=== PATIENT | male | born 1980 | race African-American/Black ===

== ENCOUNTER 2018-10-18 11:44 | Emergency (ER) | payer OTHER, SELFPAY ==
[2018-10-18] MEDS ORDERED: Ketorolac Tromethamine 60 MG/2 ML VIAL ONE (12:15)
== END 2018-10-18 12:35 | disposition home or self-care (01) ==
LOC: ERS 11:44
DX: A63.0 Anogenital (venereal) warts (principal); K61.0 Anal abscess; F32.9 Major depressive disorder, single episode, unspecified; F17.210 Nicotine dependence, cigarettes, uncomplicated; F20.9 Schizophrenia, unspecified; L03.116 Cellulitis of left lower limb; L03.115 Cellulitis of right lower limb
CPT/HCPCS: 96372; 99283; J1885

== ENCOUNTER 2020-01-02 06:02 | Emergency (ER) | payer SELFPAY ==
[2020-01-02] MEDS ORDERED: Ketorolac Tromethamine 30 MG/ML VIAL ONE (06:11)
[2020-01-02] MEDS ORDERED: Orphenadrine Citrate 60 MG/2 ML VIAL SLOW IVP SCH (06:15)
== END 2020-01-02 07:10 | disposition home or self-care (01) ==
LOC: ERS 06:02
DX: M62.830 Muscle spasm of back (principal); I10 Essential (primary) hypertension; F32.9 Major depressive disorder, single episode, unspecified; F20.9 Schizophrenia, unspecified; F17.210 Nicotine dependence, cigarettes, uncomplicated; Z79.899 Other long term (current) drug therapy
CPT/HCPCS: 96372; 99283; J1885; J2360

== ENCOUNTER 2022-01-16 21:57 | Inpatient (IN) | payer SELFPAY ==
[2022-01-17] MEDS ORDERED: HYDROcodone/Acetaminophen 10/325 mg Tablet ONE (01:21)
[2022-01-17 02:50] LABS: #Lymphocytes 2.2 thou/uL (1.20-3.40); #Neutrophils 10.4 thou/uL (1.40-6.50); %Basophils 0.1 % (0.0-1.0); %Eosinophils 0.3 % (0.0-10.0); %Lymphocytes 16.1 % (21.0-51.0); %Monocytes 7.2 % (0.0-10.0); %Neutrophils 76.2 % (42.0-75.0); Hemoglobin 15.2 g/dL (14.0-18.0); Mean Corpuscular HGB CONC 32.1 g/dL (32.0-36.0); Mean Corpuscular Hemoglobin 31.8 pg (27.0-31.0); Mean Corpuscular Volume 98.8 fl (78.0-98.0); Mean Platelet Volume 7.1 fL (7.4-10.4); Platelet Count 390 10x3/uL (130-400); RBC Distribution Width 14.2 % (11.5-14.5); White Blood Cell (WBC) Count 13.6 10x3/uL (4.8-10.8)
[2022-01-17] MEDS ORDERED: FENTANYL 50 MCG/ML 1 ML VIAL ONE ×2 (02:51→03:12)
[2022-01-17 02:58] LABS: ALT (SGPT) 18 U/L (8-55); AST (SGOT) 24 U/L (5-34); Albumin 3.8 g/dL (3.5-5.0); Alkaline Phosphatase 119 U/L (40-110); Anion Gap 16 mmol/L (10-20); BUN (Urea Nitrogen) 11 mg/dL (8.9-20.6); Bilirubin, Total 0.5 mg/dL (0.2-1.2); Calc. Creatinine Clearance 0 mL/min (70-130); Calcium 9.1 mg/dL (7.8-10.44); Carbon Dioxide 20 mmol/L (22-29); Chloride 105 mmol/L (98-107); Estimated GFR 79; Globulin 4.1 g/dL (2.4-3.5); Glucose 139 mg/dL (70-105); Potassium 4.3 mmol/L (3.5-5.1); Protein, Total 7.9 g/dL (6.0-8.3); Sodium 137 mmol/L (136-145)
[2022-01-17] MEDS ORDERED: Acetaminophen 325 MG TAB PO PRN (06:00)
[2022-01-17] MEDS ORDERED: Ondansetron PF 4 MG/2 ML Vial IVP PRN ×2 (06:00→06:47)
[2022-01-17] MEDS ORDERED: Ondansetron ODT 4 MG TAB SL PRN (06:00)
[2022-01-17] MEDS ORDERED: Morphine 4 MG/ML VIAL ONE (06:16)
[2022-01-17] MEDS ORDERED: Morphine 4 MG/ML VIAL SLOW IVP PRN (06:34)
[2022-01-17 06:42] VITALS: BMI 44.0
[2022-01-17] MEDS ORDERED: traMADol HCl 50 MG TAB PO PRN ×2 (06:47)
[2022-01-17] MEDS ORDERED: Ondansetron ODT 4 MG TAB PO PRN (06:47)
[2022-01-17] MEDS ORDERED: hydrALAZINE 20 MG/ML VIAL SLOW IVP PRN ×2 (06:47→06:51)
[2022-01-17] MEDS ORDERED: Dextrose 50% Abboject 50 ML SYRINGE SLOW IVP PRN (06:47)
[2022-01-17] MEDS ORDERED: Dextrose 5% in Water 1,000 ML IV PRN (06:47)
[2022-01-17] MEDS ORDERED: Cyclobenzaprine 10 MG TAB PO PRN (06:51)
[2022-01-17] MEDS ORDERED: Sodium Chloride 0.9% 1,000 ML IV SCH (07:00)
[2022-01-17 07:29] LABS: SARS-CoV-2 NAA Rapid Test Not Detected (NotDetected)
[2022-01-17] MEDS: Senokot S 8.6-50 MG TAB PO SCH ×2 (08:06→20:52)
[2022-01-17] MEDS: Polyethylene Glycol 3350 17 GM Packet PO SCH (08:06)
[2022-01-17] MEDS: Famotidine 20 MG TAB PO SCH ×2 (08:06→20:52)
[2022-01-17] MEDS ORDERED: Acetaminophen 325 MG TAB PO SCH (12:00)
[2022-01-17] MEDS ORDERED: Ibuprofen 200 MG TAB PO PRN (12:51)
[2022-01-17] MEDS: Gabapentin 300 MG CAP PO SCH ×2 (14:01→20:52)
[2022-01-17] MEDS: traMADol HCl 50 MG TAB PO PRN ×2 (14:02→20:54)
[2022-01-17] MEDS: Acetaminophen/Codeine 30-300mg Tablet PO SCH (17:17)
[2022-01-18] MEDS: Acetaminophen/Codeine 30-300mg Tablet PO SCH ×5 (00:18→23:53)
[2022-01-18] MEDS: Famotidine 20 MG TAB PO SCH ×2 (07:59→21:18)
[2022-01-18] MEDS: Polyethylene Glycol 3350 17 GM Packet PO SCH (07:59)
[2022-01-18] MEDS: Senokot S 8.6-50 MG TAB PO SCH ×2 (07:59→22:48)
[2022-01-18] MEDS: Gabapentin 300 MG CAP PO SCH ×3 (08:00→21:18)
[2022-01-18] MEDS: Amlodipine 5 MG TAB PO SCH (10:16)
[2022-01-18] MEDS: Enoxaparin Sodium 40 MG/0.4 ML SYRINGE SC SCH ×2 (10:17→21:18)
[2022-01-19] MEDS: Acetaminophen/Codeine 30-300mg Tablet PO SCH ×2 (05:42→12:47)
[2022-01-19] MEDS: Enoxaparin Sodium 40 MG/0.4 ML SYRINGE SC SCH (08:05)
[2022-01-19] MEDS: Gabapentin 300 MG CAP PO SCH ×2 (08:06→16:03)
[2022-01-19] MEDS: Famotidine 20 MG TAB PO SCH (08:06)
[2022-01-19] MEDS: Amlodipine 5 MG TAB PO SCH (08:06)
[2022-01-19 12:45] VITALS: BP 125/81; TEMP 98.6
[2022-01-19] MEDS: Polyethylene Glycol 3350 17 GM Packet PO SCH (12:47)
[2022-01-19] MEDS: Senokot S 8.6-50 MG TAB PO SCH (12:47)
== END 2022-01-19 18:30 | disposition home or self-care (01) | DRG 563 ==
LOC: ERS 21:57 → SJJU 01-17 03:18
PROVIDERS: ADMIT Surgery; ATTEND Surgery
DX: S82.141A Displaced bicondylar fracture of right tibia, initial encounter for closed fracture (principal); Z68.41 Body mass index [BMI] 40.0-44.9, adult; W10.9XXA Fall (on) (from) unspecified stairs and steps, initial encounter; Z20.822 Contact with and (suspected) exposure to COVID-19; F20.9 Schizophrenia, unspecified; Z85.048 Personal history of other malignant neoplasm of rectum, rectosigmoid junction, and anus; E66.9 Obesity, unspecified; I10 Essential (primary) hypertension; F17.210 Nicotine dependence, cigarettes, uncomplicated
CPT/HCPCS: 80053; 85025; J1650; J2270; J3010; J7050; U0002

== ENCOUNTER 2023-02-20 12:31 | Emergency (ER) | payer BC, OTHER, SELFPAY ==
[2023-02-20] MEDS ORDERED: Ketorolac Tromethamine 30 MG (1 mL) VIAL ONE (13:18)
[2023-02-20] MEDS ORDERED: Ondansetron PF 4 MG/2 ML Vial ONE (13:18)
[2023-02-20] MEDS ORDERED: Morphine 4 MG/ML VIAL ONE (13:18)
[2023-02-20 13:27] LABS: #Eosinphils 0.2 thou/uL (0.0-0.7); #Monocytes 1.2 thou/uL (0.11-0.59); #Neutrophils 7.6 thou/uL (1.40-6.50); %Basophils 0.3 % (0.0-1.0); %Eosinophils 1.6 % (0.0-10.0); %Lymphocytes 13.9 % (21.0-51.0); %Monocytes 11.7 % (0.0-10.0); %Neutrophils 72.2 % (42.0-75.0); Hematocrit 42.1 % (42.0-52.0); Hemoglobin 13.8 g/dL (14.0-18.0); Mean Corpuscular HGB CONC 32.8 g/dL (32.0-36.0); Mean Corpuscular Volume 94.6 fl (78.0-98.0); Mean Platelet Volume 9.8 fL (7.4-10.4); Platelet Count 299 10x3/uL (130-400); RBC Distribution Width 15.4 % (11.5-14.5); Red Blood Cell (RBC) Count 4.45 mill/uL (4.70-6.10); White Blood Cell (WBC) Count 10.5 10x3/uL (4.8-10.8)
[2023-02-20 13:47] LABS: Prothrombin Time 13.3 sec (12.0-14.7)
[2023-02-20 13:48] LABS: PTT 26.4 sec (22.9-36.1)
[2023-02-20 13:57] LABS: Acetaminophen Less than 10 mcg/mL (10.0-30.0); Alcohol Less than 10.0 mg/dL (Less than 10); Lipase 31 U/L (8-78); Salicylate Less than 8.0 mg/dL (15.0-30.0)
[2023-02-20 13:58] LABS: ALT (SGPT) 18 U/L (8-55); AST (SGOT) 33 U/L (5-34); Albumin 3.7 g/dL (3.5-5.0); Alkaline Phosphatase 106 U/L (40-110); Anion Gap 12 mmol/L (10-20); BUN (Urea Nitrogen) 10 mg/dL (8.9-20.6); Bilirubin, Total 0.3 mg/dL (0.2-1.2); CK (CPK) 1469 U/L (30-200); Calc. Creatinine Clearance 0 mL/min (70-130); Calcium 8.6 mg/dL (7.8-10.44); Carbon Dioxide 24 mmol/L (22-29); Chloride 109 mmol/L (98-107); Estimated GFR 109; Globulin 3.6 g/dL (2.4-3.5); Glucose 97 mg/dL (70-105); Potassium 4.2 mmol/L (3.5-5.1); Protein, Total 7.3 g/dL (6.0-8.3); Sodium 141 mmol/L (136-145)
[2023-02-20 14:28] LABS: SARS-CoV-2 NAA Rapid Test DETECTED (NotDetected)
[2023-02-20] MEDS ORDERED: Iopamidol-370 76% 500 ML MDV (1 ML CHARGE) ONE (16:08)
== END 2023-02-21 12:24 ==
LOC: ERS 12:31
DX: R45.851 Suicidal ideations (principal); I10 Essential (primary) hypertension; F17.210 Nicotine dependence, cigarettes, uncomplicated
CPT/HCPCS: 36415; 71045; 74177; 80053; 80307; 82550; 83690; 85025; 85610; 85730; 93005; 96374; 96375; J1885; J2270; J2405; Q9967

== ENCOUNTER 2023-03-29 10:06 | Emergency (ER) | payer OTHER, SELFPAY ==
[2023-03-29 10:36] LABS: #Eosinphils 0.1 thou/uL (0.0-0.7); #Monocytes 0.9 thou/uL (0.11-0.59); #Neutrophils 8.5 thou/uL (1.40-6.50); %Basophils 0.2 % (0.0-1.0); %Eosinophils 0.7 % (0.0-10.0); %Lymphocytes 21.7 % (21.0-51.0); %Monocytes 7.5 % (0.0-10.0); %Neutrophils 69.5 % (42.0-75.0); Hematocrit 39.4 % (42.0-52.0); Hemoglobin 12.9 g/dL (14.0-18.0); Mean Corpuscular HGB CONC 32.7 g/dL (32.0-36.0); Mean Corpuscular Hemoglobin 31.3 pg (27.0-31.0); Mean Corpuscular Volume 95.6 fl (78.0-98.0); Mean Platelet Volume 8.9 fL (7.4-10.4); Platelet Count 378 10x3/uL (130-400); RBC Distribution Width 15.6 % (11.5-14.5); Red Blood Cell (RBC) Count 4.12 mill/uL (4.70-6.10); White Blood Cell (WBC) Count 12.3 10x3/uL (4.8-10.8)
[2023-03-29 11:19] LABS: Acetaminophen Less than 10 mcg/mL (10.0-30.0); Alcohol Less than 10.0 mg/dL (Less than 10); Salicylate Less than 8.0 mg/dL (15.0-30.0)
[2023-03-29 11:23] LABS: ALT (SGPT) 24 U/L (8-55); AST (SGOT) 45 U/L (5-34); Albumin 4.2 g/dL (3.5-5.0); Alkaline Phosphatase 115 U/L (40-110); Anion Gap 13 mmol/L (10-20); BUN (Urea Nitrogen) 17 mg/dL (8.9-20.6); Bilirubin, Total 0.6 mg/dL (0.2-1.2); Calc. Creatinine Clearance 0 mL/min (70-130); Calcium 9.3 mg/dL (7.8-10.44); Carbon Dioxide 20 mmol/L (22-29); Chloride 108 mmol/L (98-107); Estimated GFR 98; Globulin 3.7 g/dL (2.4-3.5); Glucose 99 mg/dL (70-105); Potassium 3.4 mmol/L (3.5-5.1); Protein, Total 7.9 g/dL (6.0-8.3); Sodium 138 mmol/L (136-145)
[2023-03-29] MEDS ORDERED: Potassium Chloride 20 MEQ TAB ONE (11:47)
[2023-03-29 12:04] LABS: Bacteria/HPF None Seen HPF (None Seen); Bilirubin Negative (Negative); Blood, Urine 1+ (Negative); CAUTI Indications for Culture Pelvic or flank pain; Clarity Clear (Clear); Glucose, Urine (Dipstick) Normal (Negative); Ketone, Urine 20 mg/dL (Negative); Leukocyte 250 Leu/uL (Negative); Nitrite Negative (Negative); Protein, Urine (Dipstick) 20 mg/dL (Neg-Trace); Specific Gravity, Urine 1.028 (1.002-1.036); Squamous Epithelial 0-3 HPF (0-3); Urobilinogen Normal mg/dL (Less than 2); pH, Urine 5.5 (5.0-9.0)
[2023-03-29 12:31] LABS: Urine Culture Reflex Yes Yes
[2023-03-29 12:44] LABS: Amphetamine Not Detected (NotDetected); Barbiturates Screen Not Detected (NotDetected); Benzodiazepine Screen Not Detected (NotDetected); Cocaine Metabolite Screen Detected (NotDetected); Methadone Not Detected (NotDetected); Methamphetamine Not Detected (NotDetected); Opiate Screen Not Detected (NotDetected); Oxycodone Screen Not Detected (NotDetected); Phencyclidine (PCP) Not Detected (NotDetected); THC/Cannabinoid Screen Detected (NotDetected); Tricyclic Screen Not Detected (NotDetected)
[2023-03-29] MEDS ORDERED: QUEtiapine 100 MG TAB PO SCH (20:45)
== END 2023-03-29 22:31 ==
LOC: ERS 10:06
DX: R45.851 Suicidal ideations (principal); F17.210 Nicotine dependence, cigarettes, uncomplicated; F12.10 Cannabis abuse, uncomplicated; F14.10 Cocaine abuse, uncomplicated; I10 Essential (primary) hypertension; Z86.19 Personal history of other infectious and parasitic diseases
CPT/HCPCS: 36416; 80053; 80306; 80307; 81001; 84443; 85025; 87086; 99285

== ENCOUNTER 2023-09-03 10:11 | Emergency (ER) | payer BC, SELFPAY ==
[2023-09-03] MEDS ORDERED: Morphine 4 MG/ML VIAL ONE (10:45)
[2023-09-03] MEDS ORDERED: Ondansetron PF 4 MG/2 ML Vial ONE (10:45)
[2023-09-03 12:53] LABS: Bilirubin Negative (Negative); Blood, Urine 1+ (Negative); CAUTI Indications for Culture Pelvic or flank pain; Clarity Clear (Clear); Glucose, Urine (Dipstick) Normal (Negative); Ketone, Urine Trace mg/dL (Negative); Leukocyte 25 Leu/uL (Negative); Nitrite Negative (Negative); Protein, Urine (Dipstick) 50 mg/dL (Neg-Trace); RBC/HPF 0-3 HPF (0-3); Specific Gravity, Urine 1.032 (1.002-1.036); pH, Urine 5.5 (5.0-9.0)
[2023-09-03 12:54] LABS: Bacteria/HPF Rare-Few HPF (None Seen)
[2023-09-03 12:55] LABS: Urine Culture Reflex No No
[2023-09-03 13:00] LABS: Amphetamine Not Detected (NotDetected); Barbiturates Screen Not Detected (NotDetected); Benzodiazepine Screen Not Detected (NotDetected); Cocaine Metabolite Screen Detected (NotDetected); Methadone Not Detected (NotDetected); Methamphetamine Not Detected (NotDetected); Opiate Screen Not Detected (NotDetected); Oxycodone Screen Not Detected (NotDetected); Phencyclidine (PCP) Not Detected (NotDetected); THC/Cannabinoid Screen Detected (NotDetected); Tricyclic Screen Not Detected (NotDetected)
[2023-09-03 13:09] LABS: #Basophils 0.03 10x3/uL (0.0-0.2); %Basophils 0.4 % (0.0-1.0); %Eosinophils 3.2 % (0.0-10.0); %Lymphocytes 24.5 % (21.0-51.0); %Monocytes 11.4 % (0.0-10.0); %Neutrophils 60.3 % (42.0-75.0); Hematocrit 42.1 % (42.0-52.0); Hemoglobin 13.4 g/dL (14.0-18.0); Mean Corpuscular HGB CONC 31.8 g/dL (32.0-36.0); Mean Corpuscular Hemoglobin 30.9 pg (27.0-31.0); Mean Platelet Volume 8.7 fL (7.4-10.4); Platelet Count 289 10x3/uL (130-400); RBC Distribution Width 15.1 % (11.5-14.5); Red Blood Cell (RBC) Count 4.34 mill/uL (4.70-6.10)
[2023-09-03 13:31] LABS: Lipase 16 U/L (8-78); Magnesium 2.1 mg/dL (1.6-2.6)
[2023-09-03 13:32] LABS: Acetaminophen Less than 10 mcg/mL (10.0-30.0); Alcohol Less than 10.0 mg/dL (Less than 10); Salicylate Less than 8.0 mg/dL (15.0-30.0)
[2023-09-03 13:35] LABS: ALT (SGPT) 42 U/L (8-55); AST (SGOT) 69 U/L (5-34); Albumin 3.4 g/dL (3.5-5.0); Alkaline Phosphatase 119 U/L (40-110); Anion Gap 15 mmol/L (10-20); BUN (Urea Nitrogen) 16 mg/dL (8.9-20.6); Bilirubin, Total 0.9 mg/dL (0.2-1.2); Calc. Creatinine Clearance 0 mL/min (70-130); Calcium 8.7 mg/dL (7.8-10.44); Carbon Dioxide 19 mmol/L (22-29); Chloride 108 mmol/L (98-107); Estimated GFR 82; Globulin 3.8 g/dL (2.4-3.5); Glucose 92 mg/dL (70-105); Potassium 4.6 mmol/L (3.5-5.1); Protein, Total 7.2 g/dL (6.0-8.3); Sodium 137 mmol/L (136-145)
== END 2023-09-04 07:35 ==
LOC: ERS 10:11 → EEVIPCON 10:11 → ERS 09-04 07:35
DX: R45.851 Suicidal ideations (principal); I10 Essential (primary) hypertension; F17.210 Nicotine dependence, cigarettes, uncomplicated; A63.0 Anogenital (venereal) warts; F32.A Depression, unspecified; F20.9 Schizophrenia, unspecified; Z79.899 Other long term (current) drug therapy; Z55.6 Problems related to health literacy; Z75.3 Unavailability and inaccessibility of health-care facilities
CPT/HCPCS: 36415; 74176; 80053; 80306; 80307; 81001; 83690; 83735; 85025; 96374; 96375; J2270; J2405